=== PATIENT | male | born 1950 | race Caucasian/White ===

== ENCOUNTER → 2017-04-26 | Outpatient (CLI) | payer BC | LOC: BMCIMAGING 12:06 | PROVIDERS: ATTEND Internal Medicine | DX: M50.321 Other cervical disc degeneration at C4-C5 level (principal); M46.92 Unspecified inflammatory spondylopathy, cervical region ==

== ENCOUNTER → 2017-08-10 | Outpatient (CLI) | payer BC | LOC: BMCIMAGING 09:21 | PROVIDERS: ATTEND Internal Medicine | DX: M25.511 Pain in right shoulder (principal) ==

== ENCOUNTER → 2017-10-28 | Outpatient (CLI) | payer BC | LOC: FIMAGING 10:18 | PROVIDERS: ATTEND Internal Medicine | DX: G45.3 Amaurosis fugax (principal) ==

== ENCOUNTER → 2017-12-20 | Outpatient (CLI) | payer BC | LOC: FIMAGING 08:16 | PROVIDERS: ATTEND Physician Assistant | DX: R13.14 Dysphagia, pharyngoesophageal phase (principal); K22.4 Dyskinesia of esophagus ==

== ENCOUNTER → 2018-02-28 | Outpatient (CLI) | payer BC | LOC: FIMAGING 10:40 | PROVIDERS: ATTEND Physician Assistant | DX: R13.14 Dysphagia, pharyngoesophageal phase (principal); K21.9 Gastro-esophageal reflux disease without esophagitis | CPT/HCPCS: 92611-GN ==